=== PATIENT | female | born 1945 | race Caucasian/White ===

== ENCOUNTER 2022-11-24 08:52 | Observation (INO) | payer MEDICARE, OTHER ==
[2022-11-24] MEDS ORDERED: SODIUM CHLORIDE 0.9% 1,000 ML IV STA (09:14)
[2022-11-24] MEDS ORDERED: DILTIAZEM DRIP BOLUS FROM BAG 1 MG SOLN IV ONE (09:29)
[2022-11-24] MEDS ORDERED: HEPARIN SODIUM 1,000 UN/ML (10ML VL) IV PRN (09:29)
[2022-11-24] MEDS ORDERED: DILTIAZEM 125 MG in SODIUM CHLORIDE 0.9% 100 ML IV SCH (09:30)
[2022-11-24] MEDS ORDERED: HEPARIN SOD,PORK IN 0.45% NACL 25,000 UNIT in 0.45% NACL 1 250ML.BAG IV SCH (09:30)
--- NOTE | 2022-11-24 09:45 | ED ---
General Adult HPI - General Chief complaint: Syncope Stated complaint: palpatations Time Seen by Provider: 11/24/22 09:12 Source: patient, family, EMS, RN notes reviewed, old records reviewed Mode of arrival: EMS - History of Present Illness Initial comments: Patient is a 77-year-old female with past medical history remarkable for CAD, diabetes, hypertension was on aspirin and Plavix at home presents emergency Department with what appears to be A. fib with RVR. Patient states she will this morning was having palpitations. Was not feeling well because of this. She called her daughter and they called EMS. Patient had a near syncopal episode when they stood her up which resolved when she laid down. States that her vision went black but she was still able to hear and move parts of her body. She is not fall or injure herself lately. She is not fall today. She curre ntly denies any complaints other than the palpitations. Denies nausea or vomiting. Denies chest pain. Denies abdominal pain. Denies any headache or weakness. Denies dizziness to me. No other acute complaints at this time. No history of atrial fibrillation. - Related Data Home Medications Medication Instructions Recorded Confirmed Aspirin EC [Ecotrin Low Dose] 81 mg PO DAILY 11/24/22 11/24/22 Atorvastatin [Lipitor] 80 mg PO DAILY 11/24/22 11/24/22 Clopidogrel [Plavix] 75 mg PO HS 11/24/22 11/24/22 Metoprolol Succinate (ER) [Toprol 25 mg PO DAILY 11/24/22 11/24/22 Xl] lisinopriL 30 mg PO DAILY 11/24/22 11/24/22 metFORMIN HCL [Glucophage] 500 mg PO HS 11/24/22 11/24/22 Allergies Allergy/AdvReac Type Severity Reaction Status Date / Time No Known Allergies Allergy Verified 11/24/22 11:18 Review of Systems ROS Statement: Those systems with pertinent positive or pertinent negative responses have been documented in the HPI. Review of Systems: CONST: Denies fever EYES: Denies blurry vision ENT: Denies nasal congestion C/V: Endorses palpitations RESP: Denies shortness of breath GI: Denies abdominal pain : Denies dysuria SKIN: Denies rash. MSK: Denies joint pain. NEURO: Denies headache ROS Other: All systems not noted in ROS Statement are negative. Past Medical History Past Medical History: Coronary Artery Disease (CAD), Diabetes Mellitus, Hyperlipidemia, Hypertension, Musculoskeletal Disorder, Osteoarthritis (OA), Skin Disorder, Vascular Disorder Additional Past Medical History / Comment(s): Wound Rt Heel, Polio AGE 6, RECOVERED. History of Any Multi-Drug Resistant Organisms: None Reported Past Surgical History: Appendectomy, Heart Catheterization With Stent, Hysterectomy, Joint Replacement, Tonsillectomy, Tubal Ligation Additional Past Surgical History / Comment(s): Drug eluding stent in the proximal LAD and percutaneous transluminal coronary angioplasty of the first diagonal branch of the LAD done in November 2014, bilateral knee replacements one done in 1995 and one in 2000, revision left total knee October 2015, ABD AORTAGRAM 08/2015 and PTBA RT LEG. recent knee revison surg october 29 Past Anesthesia/Blood Transfusion Reactions: No Reported Reaction Date of Last Stent Placement:: 11/2014 Past Psychological History: No Psychological Hx Reported Smoking Status: Never smoker Past Alcohol Use History: None Reported Past Drug Use History: None Reported - Past Family History Brother(s) Additional Family Medical History / Comment(s): Patient has 3 brothers with no major medical problems. Patient has 1 stepbrother and 2 stepsisters. Patient has 1 daughter that from an aneurysm and one daughter and son with no major medical problems. Mother Family Medical History: Osteoarthritis (OA) Additional Family Medical History / Comment(s): Mother is alive at age 88 with history of osteoarthritis and hip replacement Father Family Medical History: Coronary Artery Disease (CAD), Mitral Valve Prolapse (MVP) Additional Family Medical History / Comment(s): age 34 of heart attack General Exam - General Exam Comments Initial Comments: General: Appears in no acute distress. HEAD: Normal with no signs of head trauma. EYES: PERRLA, EOMI, conjunctiva normal, no discharge. Pulses are 3 mm equal bilaterally. ENT: Hearing grossly intact, normal oropharynx. RESPIRATORY: Clear breath sounds bilaterally. No wheezes, rales, or rhonchi. C/V: Irregular rate and rhythm. S1 and S2 auscultated, no edema, peripheral pulses 2+ and intact throughout ABD: Abd is soft, nontender, nondistended EXT: Normal range of motion, no obvious deformity SKIN: No rashes or lesions observed on exposed skin. NEURO: Alert and oriented 4. No focal deficits. Course Vital Signs 11/24/22 11/24/22 11/24/22 08:59 10:15 10:42 Temperature 97.0 F L Pulse Rate 131 H 76 86 Respiratory 17 18 18 Rate Blood Pressure 138/66 136/86 O2 Sat by Pulse 99 99 Oximetry 11/24/22 11/24/22 12:55 14:30 Temperature Pulse Rate 70 72 Respiratory 17 18 Rate Blood Pressure 169/121 130/70 O2 Sat by Pulse 96 97 Oximetry Medical Decision Making - Medical Decision Making Was pt. sent in by a medical professional or institution (, PA, [employer], urgent care, hospital, or group home...) When possible be specific @ -No Did you speak to anyone other than the patient for history (EMS, parent, family, police, friend...)? What history was obtained from this source @ -Patient's family is at bedside who corroborated the story. Did you review nursing and triage notes (agree or disagree)? Why? @ -I reviewed and agree with nursing and triage notes Were old charts reviewed (outside hosp., previous admission, EMS record, old EKG, old radiological studies, urgent care reports/EKG's, group home records)? Report findings @ -Old charts reviewed from 2016 when patient has had EKG here. Differential Diagnosis (chest pain, altered mental status, abdominal pain women, abdominal pain men, vaginal bleeding, weakness, fever, dyspnea, syncope, headache, dizziness, GI bleed, back pain, seizure, CVA, palpatations, mental health, musculoskeletal)? @ - Differential Palpitations Ventricular arrhythmias, atrial arrhythmias, myocardial infarction, anemia, thyrotoxicosis, electrolyte imbalance, hypokalemia, pulmonary embolism, pulmon reginald disease, drugs, alcohol, anxiety, stress.... This is not meant to be an all-inclusive list. EKG interpreted by me (3pts min.). @ -As above X-rays interpreted by me (1pt min.). @ -Chest x-ray reveals no obvious acute cardio pulmonary process. CT interpreted by me (1pt min.). @ -CT brain revealed no obvious acute intracranial process. CT angiogram the chest revealed no obvious pulmonary embolism. U/S interpreted by me (1pt. min.). @ -None done What testing was considered but not performed or refused? (CT, X-rays, U/S, la bs)? Why? @ -None What meds were considered but not given or refused? Why? @ -None Did you discuss the management of the patient with other professionals (professionals i.e. , PA, [employer], lab, RT, psych nurse, social sciences professor, portable trackman, teacher, loan review officer, cyanide case hardener)? Give summary @ -Discussed with Dr. Delaney who accepted the admission. Was smoking cessation discussed for >3mins.? @ -No Was critical care preformed (if so, how long)? @ -yes, 37 min Were there social determinants of health that impacted care today? How? (Homelessness, low income, unemployed, alcoholism, drug addiction, transportation, low edu. Level, literacy, decrease access to med. care, fdc, rehab)? @ -No Was there de-escalation of care discussed even if they declined (Discuss DNR or withdrawal of care, Hospice)? DNR status @ -No What co-morbidities impacted this encounter? (DM, HTN, Smoking, COPD, CAD, Cancer, CVA, ARF, Chemo, Hep., AIDS, mental health diagnosis, sleep apnea, morbid obesity)? @ -None Was patient admitted / discharged? Hospital course, mention meds given and route, prescriptions, significant lab abnormalities, going to OR and other pertinent info. @ -Based on the patient's presentation and physical exam, I'm concerned for atrial fibrillation with RVR for the patient. Appeared to have an orthostatic hypotensive episode earlier as well. Vital signs other than the A. fib with RVR are within acceptable limits at this time. We will obtain cardiac workup. Patient was in agreement this plan. Exam is unremarkable other than the A. fib with RVR at this time as well. Patient will be administered with aspirin, and will be started on a Cardizem drip for heart rate control as well as a heparin drip for the new onset A. fib. Patient was in agreement this plan. EKG showed new onset atrial fibrillation with RVR.Chest x-ray revealed no obvious acute process. Patient had an elevated d-dimer and CT angiogram revealed no obvious pulmonary embolism. Labs otherwise reveal negative troponin. BNP within acceptable limits for her age. No other obvious findings on labs. Following the bolus of Cardizem, patient did convert to normal sinus rhythm. She is not requiring the drip at this time but will be hung at bedside. Patiently maintained on a heparin drip now that CT brain was unremarkable. CT brain was obtained because patient had a recent fall in the last few weeks and she is uncertain if she injured herself. After the patient. She will be admitted for cardiology evaluation. She was in agreement with this plan. I spoke the accepting physician, Dr. Delaney who accepted the patient. Undiagnosed new problem with uncertain prognosis? @ -No Drug Therapy requiring intensive monitoring for toxicity (Heparin, Nitro, Insulin, Cardizem)? @ -No Were any procedures done? @ -No Diagnosis/symptom? @ -Atrial fibrillation with RVR Acute, or Chronic, or Acute on Chronic? @ -Acute Uncomplicated (without systemic symptoms) or Complicated (systemic symptoms)? @ -Complicated Side effects of treatment? @ -No Exacerbation, Progression, or Severe Exacerbation? @ -No Poses a threat to life or bodily function? How? (Chest pain, [place], [place], pneumonia, PE, COPD, DKA, ARF, appy, cholecystitis, CVA, Diverticulitis, Homicidal, Suicidal, threat to staff... and all critical care pts) @ -Potentially yes Diagnosis/symptom? @ -Near-syncope Acute, or Chronic, or Acute on Chronic? @ -Acute Uncomplicated (without systemic symptoms) or Complicated (systemic symptoms)? @ -Complicated Side effects of treatment? @ -none Exacerbation, Progression, or Severe Exacerbation] @ -no Poses a threat to life or bodily function? @ -no - Lab Data Result diagrams: 11/24/22 09:34 11/24/22 09:34 Lab Results 11/24/22 11/24/22 11/24/22 Range/Units 09:34 09:34 09:34 WBC 9.9 (3.8-10.6) k/uL RBC 4.09 (3.80-5.40) m/uL Hgb 12.9 (11.4-16.0) gm/dL Hct 39.8 (34.0-46.0) % MCV 97.2 (80.0-100.0) fL MCH 31.4 (25.0-35.0) pg MCHC 32.3 (31.0-37.0) g/dL RDW 14.0 (11.5-15.5) % Plt Count 241 (150-450) k/uL MPV 8.2 Neutrophils % 82 % Lymphocytes % 11 % Monocytes % 4 % Eosinophils % 2 % Basophils % 0 % Neutrophils # 8.1 H (1.3-7.7) k/uL Lymphocytes # 1.1 (1.0-4.8) k/uL Monocytes # 0.4 (0-1.0) k/uL Eosinophils # 0.2 (0-0.7) k/uL Basophils # 0.0 (0-0.2) k/uL PT 10.5 (9.0-12.0) sec INR 1.0 (<1.2) APTT 22.1 (22.0-30.0) sec D-Dimer 1.33 H (<0.60) mg/L FEU Sodium 134 L (137-145) mmol/L Potassium 4.0 (3.5-5.1) mmol/L Chloride 105 (98-107) mmol/L Carbon Dioxide 21 L (22-30) mmol/L Anion Gap 8 mmol/L BUN 18 H (7-17) mg/dL Creatinine 0.60 (0.52-1.04) mg/dL Est GFR (CKD-EPI)AfAm >90 (>60 ml/min/1.73 sqM) Est GFR (CKD-EPI)NonAf 90 (>60 ml/min/1.73 sqM) Glucose 147 H (74-99) mg/dL Calcium 8.7 (8.4-10.2) mg/dL Magnesium 1.6 (1.6-2.3) mg/dL Total Bilirubin 0.9 (0.2-1.3) mg/dL AST 21 (14-36) U/L ALT 14 (4-34) U/L Alkaline Phosphatase 82 (38-126) U/L Troponin I (0.000-0.034) ng/mL NT-Pro-B Natriuret Pep 1200 pg/mL Total Protein 6.2 L (6.3-8.2) g/dL Albumin 3.5 (3.5-5.0) g/dL Urine Color Urine Appearance (Clear) Urine pH (5.0-8.0) Ur Specific Trinity (1.001-1.035) Urine Protein (Negative) Urine Glucose (UA) (Negative) Urine Ketones (Negative) Urine Blood (Negative) Urine Nitrite (Negative) Urine Bilirubin (Negative) Urine Urobilinogen (<2.0) mg/dL Ur Leukocyte Esterase (Negative) Urine RBC (0-5) /hpf Urine WBC (0-5) /hpf Ur Squamous Epith Cells (0-4) /hpf Urine Bacteria (None) /hpf Hyaline Casts (0-2) /lpf Urine Mucus (None) /hpf 11/24/22 11/24/22 Range/Units 09:34 09:34 WBC (3.8-10.6) k/uL RBC (3.80-5.40) m/uL Hgb (11.4-16.0) gm/dL Hct (34.0-46.0) % MCV (80.0-100.0) fL MCH (25.0-35.0) pg MCHC (31.0-37.0) g/dL RDW (11.5-15.5) % Plt Count (150-450) k/uL MPV Neutrophils % % Lymphocytes % % Monocytes % % Eosinophils % % Basophils % % Neutrophils # (1.3-7.7) k/uL Lymphocytes # (1.0-4.8) k/uL Monocytes # (0-1.0) k/uL Eosinophils # (0-0.7) k/uL Basophils # (0-0.2) k/uL PT (9.0-12.0) sec INR (<1.2) APTT (22.0-30.0) sec D-Dimer (<0.60) mg/L FEU Sodium (137-145) mmol/L Potassium (3.5-5.1) mmol/L Chloride (98-107) mmol/L Carbon Dioxide (22-30) mmol/L Anion Gap mmol/L BUN (7-17) mg/dL Creatinine (0.52-1.04) mg/dL Est GFR (CKD-EPI)AfAm (>60 ml/min/1.73 sqM) Est GFR (CKD-EPI)NonAf (>60 ml/min/1.73 sqM) Glucose (74-99) mg/dL Calcium (8.4-10.2) mg/dL Magnesium (1.6-2.3) mg/dL Total Bilirubin (0.2-1.3) mg/dL AST (14-36) U/L ALT (4-34) U/L Alkaline Phosphatase (38-126) U/L Troponin I <0.012 (0.000-0.034) ng/mL NT-Pro-B Natriuret Pep pg/mL Total Protein (6.3-8.2) g/dL Albumin (3.5-5.0) g/dL Urine Color Light Yellow Urine Appearance Slightly Cloudy H (Clear) Urine pH 7.5 (5.0-8.0) Ur Specific Trinity 1.010 (1.001-1.035) Urine Protein Negative (Negative) Urine Glucose (UA) Negative (Negative) Urine Ketones Negative (Negative) Urine Blood Trace (Negative) Urine Nitrite Negative (Negative) Urine Bilirubin Negative (Negative) Urine Urobilinogen <2.0 (<2.0) mg/dL Ur Leukocyte Esterase Moderate (Negative) Urine RBC <1 (0-5) /hpf Urine WBC 27 H (0-5) /hpf Ur Squamous Epith Cells 1 (0-4) /hpf Urine Bacteria Occasional H (None) /hpf Hyaline Casts 1 (0-2) /lpf Urine Mucus Rare H (None) /hpf - EKG Data -: EKG Interpreted by Me EKG Comments: 12-lead Electrocardiogram Interpretation Note EKG was reviewed and interpreted by myself. 12-lead ECG performed at 0855 is interpreted by me as revealing atrial fibrillation with RVR at a rate of default value beats per minute. [place] is normal. QRS duration is 82 ms, QTc is 348 ms.. There were no ST or T wave abnormalities to suggest myocardial ischemia or injury. R wave progression across the precordium was satisfactory. By my interpretation this EKG is non-diagnostic for acute ischemia.When compared with EKG from October 2015, patient is in new onset A. fib. No other significant changes. 12-lead Electrocardiogram Interpretation Note EKG was reviewed and interpreted by myself. 12-lead ECG performed at 1122 is interpreted by me as revealing normal sinus rhythm at a rate of 68 beats per minute. [place] is normal. [place] interval is 212 ms, QRS duration is 85 ms, QTc is 463 ms.. There were no ST or T wave abnormalities to suggest myocardial ischemia or injury. R wave progression across the precordium was satisfactory. By my interpretation this EKG is non-diagnostic for acute ischemia. Critical Care Time Critical Care Time: Yes Total Critical Care Time: 37 Disposition Clinical Impression: Atrial fibrillation with RVR, Syncope, near Disposition: ADMITTED IP TO THIS HOSP Condition: Stable Referrals: Fran Vela DO [Primary Care Provider] - 1-2 days Time of Disposition: 12:38
[2022-11-24] MEDS ORDERED: ASPIRIN 81 MG PO STA (09:56)
[2022-11-24 10:05] LABS: Basophils % (A) 0 %; Eosinophils # (A) 0.2 k/uL (0-0.7); Eosinophils % (A) 2 %; HCT 39.8 % (34.0-46.0); HGB 12.9 gm/dL (11.4-16.0); Lymphocytes # (A) 1.1 k/uL (1.0-4.8); Lymphocytes % (A) 11 %; MCH 31.4 pg (25.0-35.0); MCHC 32.3 g/dL (31.0-37.0); MCV 97.2 fL (80.0-100.0); Mean Platelet Volume 8.2; Monocytes # (A) 0.4 k/uL (0-1.0); Monocytes % (A) 4 %; Neutrophils # (A) 8.1 k/uL (1.3-7.7); Neutrophils % (A) 82 %; Platelet Count 241 k/uL (150-450); RBC 4.09 m/uL (3.80-5.40); WBC 9.9 k/uL (3.8-10.6)
[2022-11-24 10:29] LABS: ALT 14 U/L (4-34); AST 21 U/L (14-36); African American GFR (CKD) >90 (>60 ml/min/1.73 sqM); Albumin 3.5 g/dL (3.5-5.0); Alkaline Phosphatase 82 U/L (38-126); Anion Gap 8 mmol/L; Blood Urea Nitrogen 18 mg/dL (7-17); Calcium 8.7 mg/dL (8.4-10.2); Carbon Dioxide 21 mmol/L (22-30); Chloride 105 mmol/L (98-107); Glucose 147 mg/dL (74-99); Magnesium 1.6 mg/dL (1.6-2.3); Non-African American GFR(CKD) 90 (>60 ml/min/1.73 sqM); Sodium 134 mmol/L (137-145); Total Bilirubin 0.9 mg/dL (0.2-1.3); Total Protein 6.2 g/dL (6.3-8.2)
[2022-11-24 10:38] LABS: NT-Pro-B-Type Natriuretic Pept 1200 pg/mL
--- NOTE | 2022-11-24 10:40 | XR ---
EXAMINATION TYPE: XR chest 2V DATE OF EXAM: 11/24/2022 COMPARISON: 11/12/2015 HISTORY: 77-year-old female with chest pain TECHNIQUE: AP and lateral views FINDINGS: Heart borderline in size. Aorta and pulmonary vasculature within normal limits. No consolidation or p leural effusion. IMPRESSION: Borderline heart size. No acute process seen.
[2022-11-24 11:05] LABS: Partial Thromboplastin Time 22.1 sec (22.0-30.0); Prothrombin Time 10.5 sec (9.0-12.0)
[2022-11-24] MEDS: HEPARIN SODIUM 1,000 UN/ML (10ML VL) IV ONE ×2 (11:38→12:49)
[2022-11-24] MEDS: DILTIAZEM 125 MG in SODIUM CHLORIDE 0.9% 100 ML IV SCH (12:04)
--- NOTE | 2022-11-24 12:35 | CT ---
EXAMINATION TYPE: CT brain wo con DATE OF EXAM: 11/24/2022 COMPARISON: None HISTORY: 77-year-old female head trauma, syncope Syncope. TECHNIQUE: Examination was done in axial plane without intravenous contrast. Coronal and sagittal r econstructions performed. CT DLP: 1150.6 mGycm Automated exposure control for dose reduction was used. FINDINGS: There is no evidence of acute intracranial hemorrhage, acute ischemic changes, mass, mass-effect, or extra-axial fluid collection. There is no effacement of cerebral sulci or basal subarachnoid cister ns. There is no hydrocephalus. There is no midline shift. Vivas-white matter distinction is preserv ed. Atherosclerotic calcifications within the carotid siphons. Moderate patchy white matter hypodensities in both cerebral hemispheres Leftward nasal septal deviation. Trace mucosal thickening ethmoid air cells. Small amount of fluid sc attered within the right mastoid air cells. Orbits and globes appear intact. IMPRESSION: No acute intracranial abnormality seen. Moderate patchy burden of chronic small vessel ischemic disea se.
--- NOTE | 2022-11-24 12:38 | CT ---
EXAMINATION TYPE: CT chest angio for PE CT DLP: 588 mGycm, Automated exposure control for dose reduction was used. DATE OF EXAM: 11/24/2022 12:04 PM COMPARISON: None CLINICAL INDICATION:Female, 77 years old with history of elevated dimer, new onset a fib, eval for PE; Elevated d-dimer and chest pain. TECHNIQUE/CONTRAST: CTA scan of the thorax is performed with IV Contrast, patient injected with 82ml mL of Isovue 370, PA P images are created and reviewed these are created on a separate workstation.. FINDINGS: Pulmonary Artery: There is no evidence for a filling defect within the pulmonary vasculature to sugge st acute pulmonary embolism. The pulmonary artery is of normal size. Lungs/Pleura: No evidence of focal consolidation, pleural effusion or pneumothorax. Airway: Large airways are patent. Heart: The heart is enlarged for size. Mitral valve annular cusp patient's. Coronary artery cusp heather ent's. Aortic valve leaflet calcifications. Vasculature: No evidence of aortic aneurysm. Mediastinum: No gross evidence of adenopathy. Small hiatal hernia. Musculoskeletal: No acute osseous abnormalities, severe degeneration changes associated with bone-on- bone articulation. There is large joint effusion right greater than left. Soft Tissues: Unremarkable. Lower neck: No significant findings. Upper Abdomen: Gallstone in the gallbladder lumen. IMPRESSION: 1. No evidence of pulmonary embolism. 2. Cardiomegaly with coronary artery calcifications, aortic valve calcifications and mitral valve mendez ular calcification. 3. Small hiatal hernia. 4. Cholelithiasis. 5. Severe degeneration of the shoulders with bilateral joint effusions, right greater than left..
[2022-11-24] MEDS ORDERED: NALOXONE 0.4 MG/ML 1 ML VIAL IV PRN (12:43)
[2022-11-24] MEDS ORDERED: ACETAMINOPHEN TAB 325 MG TAB PO PRN (12:43)
[2022-11-24] MEDS ORDERED: ONDANSETRON 4 MG/2 ML VIAL IVP PRN (12:43)
[2022-11-24 13:00] LABS: Bacteria,Urine Occasional /hpf; Hyaline Casts,Urine 1 /lpf (0-2); Mucus,Urine Rare /hpf; RBC,Urine <1 /hpf (0-5); Squamous Epithelial Cell,Urine 1 /hpf (0-4); WBC,Urine 27 /hpf (0-5)
[2022-11-24 13:11] LABS: Appearance,Urine Slightly Cloudy (Clear); Color,Urine Light Yellow; Glucose,Urine (UA) Negative (Negative); PH, Urine 7.5 (5.0-8.0); Protein,Urine Negative (Negative)
[2022-11-24 13:12] LABS: Bilirubin,Urine Negative (Negative); Blood,Urine Trace (Negative); Ketones,Urine Negative (Negative); Leukocyte Esterase,Urine Moderate (Negative); Nitrite,Urine Negative (Negative); Urobilinogen,Urine <2.0 mg/dL (<2.0)
--- NOTE | 2022-11-24 17:09 | HP ---
HISTORY AND PHYSICAL CHIEF COMPLAINT: Palpitation. HISTORY OF PRESENT ILLNESS: This is a 77-year-old woman with a past medical history of multiple medical problems, who was having palpitations. The patient was noted to have atrial fibrillation with fast ventricular rate. The patient also had evidence of presyncope with EMS, and the patient was found to have atrial fibrillation with fast ventricular rate. The patient was given Cardizem and heparin. The patient converted to normal sinus rhythm. The patient also had elevated D-dimer. CT angio was negative. There is no history of any fever, rigor, or chills. PAST MEDICAL HISTORY: Reviewed include diabetes mellitus, type 2 and DJD. Rest of the history and rest of the chart are also reviewed. HOME MEDICATIONS: Reviewed include Glucophage. Rest of the medications and rest of the chart are also reviewed. ALLERGIES: None known. FAMILY HISTORY: History of DJD. SOCIAL HISTORY: No history of smoking or alcohol. REVIEW OF SYSTEMS: Fourteen-point review is negative except as mentioned earlier. PHYSICAL EXAMINATION: VITAL SIGNS: Pulse is 72, blood pressure is 130/70, respirations 18. HEENT: Conjunctivae are normal. NECK: No jugular venous distention. CARDIOVASCULAR: S1 and S2 muffled. RESPIRATORY: Breath sounds diminished at the bases. ABDOMEN: Soft and nontender. LEGS: No edema. NERVOUS SYSTEM: No focal deficits. SKIN: No ulcers or rashes. JOINTS: No active deforming arthropathy. LABORATORY DATA: Reviewed. ASSESSMENT: 1. Atrial fibrillation with fast ventricular rate, paroxysmal. 2. Elevated D-dimer without any evidence of pulmonary embolism. 3. Rule out urinary tract infection. 4. Diabetes mellitus, type 2. 5. Hypertension. 6. Hyperlipidemia. 7. Multiple medical issues. RECOMMENDATIONS AND DISCUSSION: Recommend to continue current medications. Continue symptomatic treatment. Otherwise, we will obtain a Cardiology consultation. Empiric antibiotics, cultures. Prognosis is guarded because of multiple complex medical issues. Further recommendations to follow. MMODL / IJN: [id number] /
--- NOTE | 2022-11-24 17:39 | CA ---
Transthoracic Echo Report Name: Ana Hernandez Age: 77 Gender: F : 1945 Exam Date: 11/24/2022 13:38 Exam Location: [facility] Ht (in): 64 Wt (lb): 175 Ordering Physician: Puma Maloney MD Attending/Referring Phys: [employer]ing Pusher Evelio Anton Procedure CPT: Indications: New onset afib Cardiac Hx: Technical Quality: Fair Contrast 1: Total Dose (mL): Contrast 2: Total Dose (mL): MEASUREMENTS (Male / Female) Normal Values 2D ECHO LV Diastolic Diameter PLAX 4.4 cm 4.2 - 5.9 / 3.9 - 5.3 cm LV Systolic Diameter PLAX 2.0 cm IVS Diastolic Thickness 1.1 cm 0.6 - 1.0 / 0.6 - 0.9 cm LVPW Diastolic Thickness 1.2 cm 0.6 - 1.0 / 0.6 - 0.9 cm LV Relative Wall Thickness 0.5 RV Internal Dim ED PLAX 3.1 cm LVOT Diameter 2.0 cm Aortic Root Diameter 2.7 cm LA Systolic Diameter LX 4.3 cm 3.0 - 4.0 / 2.7 - 3.8 cm LV Diastolic Volume MOD BP 56.0 cm??? 67 - 155 / 56 - 104 cm??? LV Systolic Volume MOD BP 25.0 cm??? - 58 / 19 - 49 cm??? LV Ejection Fraction MOD BP 55.4 % >= 55 % LV Cardiac Index MOD BP 1018.7 cm???/min???m??? LV Diastolic Volume MOD 4C 64.1 cm??? LV Systolic Volume MOD 4C 37.1 cm??? LV Ejection Fraction MOD 4C 42.1 % LV Cardiac Index MOD 4C 886.0 cm???/min???m??? LV Diastolic Length 4C 6.4 cm LV Systolic Length 4C 5.8 cm LV Diastolic Volume MOD 2C 45.0 cm??? LV Systolic Volume MOD 2C 15.0 cm??? LV Ejection Fraction MOD 2C 66.7 % LV Cardiac Index MOD 2C 986.9 cm???/min???m??? LV Diastolic Length 2C 5.8 cm LV Systolic Length 2C 5.1 cm LA Volume 128.3 cm??? 18 - 58 / 22 - 52 cm??? Ascending Aorta Diameter 3.1 cm DOPPLER AV Peak Velocity 378.1 cm/s AV Peak Gradient 57.2 mmHg AV Mean Velocity 285.6 cm/s AV Mean Gradient 36.5 mmHg AV Velocity Time Integral 101.3 cm LVOT Peak Velocity 97.3 cm/s LVOT Peak Gradient 3.8 mmHg LVOT Velocity Time Integral 24.1 cm LVOT Stroke Volume 75.8 cm??? LVOT Stroke Volume Index 41.0 ml/m??? LVOT Cardiac Index 2489.0 cm???/min???m??? AV Area Cont Eq vti 0.7 cm??? AV Area Cont Eq pk 0.8 cm??? MV Peak Velocity 183.8 cm/s MV Peak Gradient 13.5 mmHg MV Mean Velocity 91.1 cm/s MV Mean Gradient 4.2 mmHg MV Velocity Time Integral 61.3 cm MR Peak Velocity 600.7 cm/s MR Peak Gradient 144.3 mmHg Mitral E Point Velocity 132.2 cm/s Mitral A Point Velocity 117.7 cm/s Mitral E to A Ratio 1.1 MV Deceleration Time 397.6 ms TR Peak Velocity 266.2 cm/s TR Peak Gradient 28.3 mmHg Right Ventricular Systolic Press 33.5 mmHg PV Peak Velocity 92.9 cm/s PV Peak Gradient 3.5 mmHg FINDINGS Left Ventricle Normal LV size. Mild concentric hypertrophy. Moderate basal septal hypertrophy.left ventricular ejection fraction is estimated at 55-60 %.normal left ventricular wall motion. Right Ventricle Normal right ventricular size. RVSP= 32mmhg. Right Atrium Normal right atrial size. Left Atrium Severe left atrial dilatation. LA Volume index= 69ml/m2 Mitral Valve Moderate MR. Estimated MV Area by VTI= [id number] mitral annular calcification. Aortic Valve Moderate AV calcification. Estimated AV Area by VTI= 0.8cm2 moderate to severe aortic stenosis with [id number] aortic regurgitation Tricuspid Valve Tricuspid valve not well visualized. Mild TR. Pulmonic Valve Pulmonic valve not well visualized. Mild PI. Pericardium Normal pericardium. Aorta Normal size aortic root and proximal ascending aorta. CONCLUSIONS 1. Normal left ventricular size and systolic function 2. Moderate to severe aortic stenosis with [id number] aortic regurgitation 3. Moderate mitral regurgitation with severe mitral annulus calcification 4. Mild tricuspid regurgitation with no evidence of pulmonary hypertension. Previewed by: Dr. Deepika Falcon MD (Electronically Signed) Final Date: 24 November 2022 17:38
[2022-11-24] MEDS ORDERED: CLOPIDOGREL 75 MG TAB PO SCH (21:00)
[2022-11-24] MEDS ORDERED: metFORMIN 500 MG TAB PO SCH (21:00)
[2022-11-24 22:28] LABS: Glucose,Whole Blood 195 mg/dL (70-110)
[2022-11-25 06:04] LABS: Glucose,Whole Blood 143 mg/dL (70-110)
[2022-11-25 06:46] LABS: INR 1.1 (<1.2); Prothrombin Time 11.1 sec (9.0-12.0)
[2022-11-25 06:47] LABS: Basophils % (A) 0 %; Eosinophils # (A) 0.2 k/uL (0-0.7); Eosinophils % (A) 2 %; HCT 39.7 % (34.0-46.0); HGB 13.1 gm/dL (11.4-16.0); Lymphocytes # (A) 1.9 k/uL (1.0-4.8); Lymphocytes % (A) 18 %; MCH 32.2 pg (25.0-35.0); MCHC 32.9 g/dL (31.0-37.0); MCV 97.8 fL (80.0-100.0); Mean Platelet Volume 7.9; Monocytes # (A) 0.5 k/uL (0-1.0); Monocytes % (A) 5 %; Neutrophils # (A) 7.8 k/uL (1.3-7.7); Neutrophils % (A) 74 %; Platelet Count 215 k/uL (150-450); RBC 4.05 m/uL (3.80-5.40); RDW 13.8 % (11.5-15.5); WBC 10.6 k/uL (3.8-10.6)
[2022-11-25 06:48] LABS: Basophils % (A) 0 %; Eosinophils # (A) 0.1 k/uL (0-0.7); Eosinophils % (A) 1 %; HCT 38.5 % (34.0-46.0); HGB 12.5 gm/dL (11.4-16.0); Lymphocytes # (A) 1.9 k/uL (1.0-4.8); Lymphocytes % (A) 18 %; MCH 31.8 pg (25.0-35.0); MCHC 32.4 g/dL (31.0-37.0); Mean Platelet Volume 7.8; Monocytes # (A) 0.5 k/uL (0-1.0); Monocytes % (A) 5 %; Neutrophils # (A) 7.6 k/uL (1.3-7.7); Neutrophils % (A) 74 %; Platelet Count 216 k/uL (150-450); RBC 3.93 m/uL (3.80-5.40); RDW 13.9 % (11.5-15.5); WBC 10.2 k/uL (3.8-10.6)
[2022-11-25 07:21] LABS: African American GFR (CKD) >90 (>60 ml/min/1.73 sqM); Anion Gap 9 mmol/L; Blood Urea Nitrogen 19 mg/dL (7-17); Calcium 9.5 mg/dL (8.4-10.2); Carbon Dioxide 24 mmol/L (22-30); Chloride 107 mmol/L (98-107); Glucose 135 mg/dL (74-99); Non-African American GFR(CKD) 81 (>60 ml/min/1.73 sqM); Potassium 4.2 mmol/L (3.5-5.1); Sodium 140 mmol/L (137-145)
[2022-11-25] MEDS: DILTIAZEM 125 MG in SODIUM CHLORIDE 0.9% 100 ML IV SCH (08:56)
[2022-11-25] MEDS ORDERED: lisinopriL 10 MG TAB PO SCH (09:00)
[2022-11-25] MEDS ORDERED: ATORVASTATIN 80 MG TAB PO SCH (09:00)
[2022-11-25] MEDS ORDERED: ASPIRIN 81 MG PO SCH (09:00)
[2022-11-25] MEDS ORDERED: APIXABAN 5 MG TAB PO SCH (09:30)
[2022-11-25] MEDS ORDERED: METOPROLOL TARTRATE 25 MG TAB PO SCH (09:30)
[2022-11-25 10:00] VITALS: RESP 18
--- NOTE | 2022-11-25 11:00 | P.CRDCN ---
History of Present Illness History of present illness: HISTORY OF PRESENT ILLNESS: This is a 77-year-old female with a past medical history significant for peripheral arterial disease, coronary artery disease with previous stenting of the LAD, hypertension, hyperlipidemia, and valvular heart disease. Patient follows in the office with Dr. Thomas. We have been asked to see the patient in consultation for new onset atrial fibrillation. Patient examined at the bedside. Patient presented to the hospital for chief complaint of palpitations. Patient was found to be in A. fib with RVR. The patient was started on IV heparin and IV Cardizem. She subsequently converted to sinus mechanism. She is maintaining sinus mechanism this morning. She denies chest pain or pressure. She denies shortness of breath. Vital signs are stable. * EKG reveals atrial fibrillation with RVR * Chest xray borderline heart size. No acute process seen. * chest CT: No evidence for pulmonary embolism. Cardiomegaly with coronary artery calcifications, aortic valve calcifications and mitral valve annular calcification. * Laboratory data: WBC 10.2. Hemoglobin 12.5. Platelet count 216. Sodium 140. Potassium 4.2. BUN 19. Creatinine 0.73. troponin 0.012. 1.510. 1.800. * Current home cardiac medications include aspirin 81 mg daily, metoprolol succinate 25 mg daily, lisinopril 30 mg daily, atorvastatin 80 mg daily, and Plavix 75 mg at night * echocardiogram completed revealing ejection fraction 55-60%, severe left atrial dilation, moderate mitral regurgitation, moderate to severe aortic stenosis, [id number] aortic regurgitation, and mild tricuspid regurgitation. * Cardiac catheterization history: October 2015 revealing mild in-stent restenosis of the proximal LAD stenting. Critical disease of the ostial first diagonal. medical management was recommended. REVIEW OF SYSTEMS: At the time of my exam: CONSTITUTIONAL: Denies fever or chills. HEENT: Denies blurred vision, vision changes, or eye pain. Denies hemoptysis CARDIOVASCULAR: Denies chest pain. Denies orthopnea. Denies PND. Denies palpitations RESPIRATORY: Denies shortness of breath. GASTROINTESTINAL: Denies abdominal pain. Denies nausea or vomiting. HEMATOLOGIC: Denies bleeding disorders. GENITOURINARY: Denies any blood in urine. SKIN: Denies pruitis. Denies rash. PHYSICAL EXAM: VITAL SIGNS: Reviewed. GENERAL: Well-developed in no acute distress. HEENT: Head is normocephalic. Pupils are equal, round. Sclerae anicteric. Mucous membranes of the mouth are moist. Neck supple. No JVD or thyromegaly LUNGS: Respirations even and unlabored. Lungs essentially clear to auscultation bilaterally. HEART: Regular rate and rhythm. S1 and S2 heard. systolic murmur noted ABDOMEN: Soft. Nondistended. Nontender. EXTREMITIES: Normal range of motion. No clubbing or cyanosis. Peripheral pulses intact. No lower extremity edema NEUROLOGIC: Awake and alert. Oriented x 3. ASSESSMENT: Palpitations New-onset atrial fibrillation with RVR Coronary artery disease with previous stenting of the LAD Peripheral arterial disease Hypertension Hyperlipidemia Valvular heart disease including moderate to severe aortic stenosis Diabetes PLAN: 2-D echo obtained and reviewed Check TSH Discontinue aspirin. Continue Plavix Begin Eliquis 5mg BID Change beta yung to metoprolol tartrate 25 mg twice a day Patient may be discharged home today from a cardiac standpoint Nurse practitioner note has been reviewed by physician. Signing provider agrees with the documented findings, assessment, and plan of care. Past Medical History Past Medical History: Coronary Artery Disease (CAD), Diabetes Mellitus, Hyp erlipidemia, Hypertension, Musculoskeletal Disorder, Osteoarthritis (OA), Skin Disorder, Vascular Disorder Additional Past Medical History / Comment(s): Wound Rt Heel, Polio AGE 6, RECOVERED. History of Any Multi-Drug Resistant Organisms: None Reported Past Surgical History: Appendectomy, Heart Catheterization With Stent, H ysterectomy, Joint Replacement, Tonsillectomy, Tubal Ligation Additional Past Surgical History / Comment(s): Drug eluding stent in the proximal LAD and percutaneous transluminal coronary angioplasty of the first diagonal branch of the LAD done in November 2014, bilateral knee replacements one done in 1995 and one in 2000, revision left total knee October 2015, ABD AORTAGRAM 08/2015 and PTBA RT LEG. recent knee revison surg october 29 Past Anesthesia/Blood Transfusion Reactions: No Reported Reaction Date of Last Stent Placement:: 11/2014 Past Psychological History: No Psychological Hx Reported Smoking Status: Never smoker Past Alcohol Use History: None Reported Additional Past Alcohol Use History / Comment(s): Patient is a lifelong nonsmoker. She denies any medical marijuana, marijuana or street drug or alcohol use. Past Drug Use History: None Reported - Past Family History Brother(s) Additional Family Medical History / Comment(s): Patient has 3 brothers with no major medical problems. Patient has 1 stepbrother and 2 stepsisters. Patient has 1 daughter that from an aneurysm and one daughter and son with no major medical problems. Mother Family Medical History: Osteoarthritis (OA) Additional Family Medical History / Comment(s): Mother is alive at age 88 with history of osteoarthritis and hip replacement Father Family Medical History: Coronary Artery Disease (CAD), Mitral Valve Prolapse (MVP) Additional Family Medical History / Comment(s): age 34 of heart attack Medications and Allergies Home Medications Medication Instructions Recorded Confirmed Type Aspirin EC [Ecotrin Low Dose] 81 mg PO DAILY 11/24/22 11/24/22 History Atorvastatin [Lipitor] 80 mg PO DAILY 11/24/22 11/24/22 History Clopidogrel [Plavix] 75 mg PO HS 11/24/22 11/24/22 History Metoprolol Succinate (ER) [Toprol 25 mg PO DAILY 11/24/22 11/24/22 History Xl] lisinopriL 30 mg PO DAILY 11/24/22 11/24/22 History metFORMIN HCL [Glucophage] 500 mg PO HS 11/24/22 11/24/22 History Allergies Allergy/AdvReac Type Severity Reaction Status Date / Time No Known Allergies Allergy Verified 11/24/22 11:18 Physical Exam Vitals: Vital Signs Temp Pulse Pulse Resp BP BP Pulse Ox 11/25/22 07:40 98 11/25/22 04:21 62 16 174/77 97 11/25/22 00:00 74 16 177/73 98 11/24/22 22:30 74 11/24/22 22:27 97.9 F 71 16 176/76 98 11/24/22 21:41 68 17 160/78 98 11/24/22 18:52 70 17 137/99 95 11/24/22 16:36 61 17 160/103 96 11/24/22 14:30 72 18 130/70 97 11/24/22 12:55 70 17 169/121 96 11/24/22 10:42 86 18 136/86 11/24/22 10:15 76 18 99 11/24/22 08:59 97.0 F L 131 H 17 138/66 99 Intake and Output 11/24/22 11/25/22 11/25/22 22:59 06:59 14:59 Output Total 125 Balance -125 Output: Urine 125 Other: Voiding Method Toilet Toilet # Voids 1 Weight 79.379 kg Results 11/25/22 05:54 11/25/22 05:54 Cardiac Enzymes 11/24/22 11/24/22 11/24/22 Range/Units 09:34 09:34 14:57 AST 21 (14-36) U/L Troponin I <0.012 1.510 H* (0.000-0.034) ng/mL 11/24/22 Range/Units 17:26 AST (14-36) U/L Troponin I 1.800 H* (0.000-0.034) ng/mL Coagulation 11/24/22 11/24/22 11/24/22 Range/Units 09:34 14:57 18:58 PT 10.5 (9.0-12.0) sec APTT 22.1 113.5 H* 68.8 H (22.0-30.0) sec 11/25/22 Range/Units 05:54 PT 11.1 (9.0-12.0) sec APTT (22.0-30.0) sec CBC 11/24/22 11/25/22 11/25/22 Range/Units 09:34 05:54 05:54 WBC 9.9 10.6 10.2 (3.8-10.6) k/uL RBC 4.09 4.05 3.93 (3.80-5.40) m/uL Hgb 12.9 13.1 12.5 (11.4-16.0) gm/dL Hct 39.8 39.7 38.5 (34.0-46.0) % Plt Count 241 215 216 (150-450) k/uL Comprehensive Metabolic Panel 11/24/22 11/25/22 Range/Units 09:34 05:54 Sodium 134 L 140 (137-145) mmol/L Potassium 4.0 4.2 (3.5-5.1) mmol/L Chloride 105 107 (98-107) mmol/L Carbon Dioxide 21 L 24 (22-30) mmol/L BUN 18 H 19 H (7-17) mg/dL Creatinine 0.60 0.73 (0.52-1.04) mg/dL Glucose 147 H 135 H (74-99) mg/dL Calcium 8.7 9.5 (8.4-10.2) mg/dL AST 21 (14-36) U/L ALT 14 (4-34) U/L Alkaline Phosphatase 82 (38-126) U/L Total Protein 6.2 L (6.3-8.2) g/dL Albumin 3.5 (3.5-5.0) g/dL Current Medications Generic Name Dose Route Start Last Admin Trade Name Freq PRN Reason Stop Dose Admin Acetaminophen 650 mg 11/24/22 12:43 Acetaminophen Tab 325 Mg Tab PO Q6HR PRN Mild Pain or Fever > 100.5 Aspirin 81 mg 11/25/22 09:00 Aspirin 81 Mg PO DAILY [facility] Atorvastatin Calcium 80 mg 11/25/22 09:00 Atorvastatin 80 Mg Tab PO DAILY [facility] Clopidogrel Bisulfate 75 mg 11/24/22 21:00 11/24/22 22:31 Clopidogrel 75 Mg Tab PO 75 mg HS MARE Administration Heparin Sodium (Porcine) 0 unit 11/24/22 09:29 Heparin Sodium 1,000 Un/Ml (10ml Vl) IV PER PROTOCOL PRN Low PTT Protocol Heparin Sodium/Sodium Chloride 250 mls @ 9.525 mls/hr 11/24/22 09:30 11/24/22 12:50 25,000 unit/ Sodium Chloride IV 12 units/kg/hr .Q24H MARE 9.525 mls/hr Administration Protocol 12 UNITS/KG/HR Diltiazem HCl 125 mg/ Sodium 125 mls @ 5 mls/hr 11/24/22 10:15 11/24/22 12:04 Chloride IV Not Given .Q24H MARE 5 MG/HR Ceftriaxone Sodium 1 gm/ 50 mls @ 100 mls/hr 11/24/22 15:45 11/24/22 16:56 Sodium Chloride IVPB 100 mls/hr Q24HR MARE Administration Protocol Lisinopril 30 mg 11/25/22 09:00 Lisinopril 10 Mg Tab PO DAILY MARE Metformin HCl 500 mg 11/24/22 21:00 11/24/22 22:31 Metformin 500 Mg Tab PO 500 mg HS MARE Administration Naloxone HCl 0.2 mg 11/24/22 12:43 Naloxone 0.4 Mg/Ml 1 Ml Vial IV Q2M PRN Opioid Reversal Ondansetron HCl 4 mg 11/24/22 12:43 Ondansetron 4 Mg/2 Ml Vial IVP Q8HR PRN Nausea And Vomiting Intake and Output 11/24/22 11/25/22 11/25/22 22:59 06:59 14:59 Output Total 125 Balance -125 Output: Urine 125 Other: Voiding Method Toilet Toilet # Voids 1 Weight 79.379 kg 11/25/22 05:54 11/25/22 05:54
[2022-11-25 11:35] LABS: Glucose,Whole Blood 138 mg/dL (70-110)
[2022-11-25 15:39] VITALS: BP 135/62; PULSE 76; TEMP 98
--- NOTE | 2022-11-25 21:46 | P.DS ---
Providers Date of admission: 11/24/22 12:46 Expected date of discharge: 11/25/22 Attending physician: Slick Delaney Consults: 11/24/22 12:43 Consult Physician Routine Consulting Provider: [facility] Consult Reason/Comments: new onset afib with rvr Do you want consulting provider notified?: Yes Primary care physician: Fran Vela [facility] Course: Final diagnosis Atrial fibrillation with fast ventricular rate, paroxysmal Epistaxis, improved Elevated d-dimer without any evidence of pulmonary embolism Possible acute urinary tract infection, present on admission Diabetes mellitus, type II Hypertension history Hyperlipidemia Obesity with a BMI of 30 GI prophylaxis DVT prophylaxis Full code Discharge disposition Patient is being discharged in a stable condition with guarded prognosis to home. Patient will follow-up with Dr. Vela in the outpatient setting upon discharge. Patient is to continue to hold Plavix and eliquis and close outpatient follow-up on Monday with primary care provider as well as cardiology as scheduled. Total time taken is greater than 35 minutes. Hospital course This is a 77-year-old female who was recently admitted with palpitations and found to be in atrial fibrillation with RVR. Patient was continued on heparin along with Cardizem and evaluated and monitored closely by cardiology. Patient has been transitioned to oral eliquis been instructed to continue with Plavix. Aspirin discontinued. Patient has been cleared by consultations for discharge today. Upon discharge patient developed a bloody nose of which patient reports she gets them very frequently. Given patient recently started new anticoagulant and was continued on Plavix and aspirin would recommend holding these until follow-up this week. Patient instructed to follow-up with primary care provider and cardiology Monday. Patient was able to control the bleeding and extremely anxious about wanting to go home. Patient also educated that if bleeding was uncontrolled to report to the nearest emergency department or call 911. Currently no reports of chest pain, shortness of breath, or palpitations. Patient is afebrile. No reports of nausea or vomiting and patient is tolerating diet. Patient will be discharged home today. Guarded prognosis. Physical exam: Gen: This is a 77-year-old female who is awake, alert and oriented 3, well- developed, well-nourished, obese. HEENT: Head is atraumatic, normocephalic. Pupils equal, round. Sclerae is anicteric. NECK: Supple. No JVD. No lymphadenopathy. No thyromegaly. LUNGS: Clear to auscultation. No wheezes or rhonchi. No intercostal retractions. HEART: S1, S2 are muffled ABDOMEN: Soft. Bowel sounds are present. No masses. No tenderness. EXTREMITIES: No pedal edema. No calf tenderness. NEUROLOGICAL: Patient is awake, alert and oriented x3. Cranial nerves 2 through 12 are grossly intact. Please refer to medication reconciliation sheet for a list of medications. The impression and plan of care has been dictated by Alice Paz, Nurse Practitioner as directed. Dr. Rhett MD I have performed a history and examination and MDM of this patient, discussed the same with the dictator, and agree with the dictator's assessment and plan as written ,documented as a scribe. Based on total visit time, I have performed more than 50% of the visit. Patient Condition at Discharge: Stable Plan - Discharge Summary Discharge Rx Participant: No New Discharge Prescriptions: New cefUROXime axetiL [Ceftin] 500 mg PO BID 3 Days #6 tab Apixaban [Eliquis] 5 mg PO BID #60 tab Acetaminophen Tab [Tylenol] 650 mg PO Q6HR PRN tab PRN Reason: Mild Pain Or Fever > 100.5 Metoprolol Tartrate [Lopressor] 25 mg PO BID #60 tab Continue Atorvastatin [Lipitor] 80 mg PO DAILY metFORMIN HCL [Glucophage] 500 mg PO HS Clopidogrel [Plavix] 75 mg PO HS lisinopriL 30 mg PO DAILY Discontinued Aspirin EC [Ecotrin Low Dose] 81 mg PO DAILY Metoprolol Succinate (ER) [Toprol Xl] 25 mg PO DAILY Discharge Medication List Atorvastatin [Lipitor] 80 mg PO DAILY 11/24/22 [History] Clopidogrel [Plavix] 75 mg PO HS 11/24/22 [History] lisinopriL 30 mg PO DAILY 11/24/22 [History] metFORMIN HCL [Glucophage] 500 mg PO HS 11/24/22 [History] Acetaminophen Tab [Tylenol] 650 mg PO Q6HR PRN tab 11/25/22 [Rx] Apixaban [Eliquis] 5 mg PO BID #60 tab 11/25/22 [Rx] Metoprolol Tartrate [Lopressor] 25 mg PO BID #60 tab 11/25/22 [Rx] cefUROXime axetiL [Ceftin] 500 mg PO BID 3 Days #6 tab 11/25/22 [Rx] Follow up Appointment(s)/Referral(s): Raffi Cox DO [STAFF PHYSICIAN] - 1 Week (APPOINTMENT MADE TO SEE DR. OLIVA ON November @ 10:00AM ) Fran Vela DO [Primary Care Provider] - 1-2 days (THE OFFICE WILL CALL YOU WITH AN APPOINTMENT DATE AND TIME) Patient Instructions/Handouts: A-fib (Atrial Fibrillation) (ED) Activity/Diet/Wound Care/Special Instructions: *HOLD PLAVIX AND ELIQUIS UNTIL YOU FOLLOW UP WITH YOUR DOCTOR Activity Limited until follow-up Follow-up with cardiology outpatient Continue taking medications as prescribed Continue to hold Eliquis and Plavix and follow-up with primary care provider and cardiology this week to discuss resuming Follow-up with primary care provider on discharge Discharge Disposition: HOME SELF-CARE
== END 2022-11-25 16:26 | disposition home or self-care (01) ==
LOC: EC 08:52 → 3SCARD 12:46
PROVIDERS: ADMIT Hospitalist; ATTEND Hospitalist
DX: I48.0 Paroxysmal atrial fibrillation (principal); I11.9 Hypertensive heart disease without heart failure; I25.10 Atherosclerotic heart disease of native coronary artery without angina pectoris; E11.51 Type 2 diabetes mellitus with diabetic peripheral angiopathy without gangrene; I25.84 Coronary atherosclerosis due to calcified coronary lesion; R79.89 Other specified abnormal findings of blood chemistry; I08.3 Combined rheumatic disorders of mitral, aortic and tricuspid valves; R04.0 Epistaxis; E78.5 Hyperlipidemia, unspecified; M19.90 Unspecified osteoarthritis, unspecified site; L98.9 Disorder of the skin and subcutaneous tissue, unspecified; K44.9 Diaphragmatic hernia without obstruction or gangrene; K80.20 Calculus of gallbladder without cholecystitis without obstruction; M25.412 Effusion, left shoulder; M25.411 Effusion, right shoulder; Z79.02 Long term (current) use of antithrombotics/antiplatelets; Z79.82 Long term (current) use of aspirin; Z79.84 Long term (current) use of oral hypoglycemic drugs; Z79.899 Other long term (current) drug therapy; Z86.12 Personal history of poliomyelitis; Z95.5 Presence of coronary angioplasty implant and graft; Z96.653 Presence of artificial knee joint, bilateral; Z90.49 Acquired absence of other specified parts of digestive tract; Z90.710 Acquired absence of both cervix and uterus; Z98.51 Tubal ligation status; Z98.890 Other specified postprocedural states; Z98.62 Peripheral vascular angioplasty status; Z82.49 Family history of ischemic heart disease and other diseases of the circulatory system; Z82.61 Family history of arthritis
CPT/HCPCS: 96366 ×3; 96368; 96376; 96361; 96365; 96367; 96375; 99291; 36415; 94760; 93005; 93306; 85379; 83880; 80053; 80048; 84443; 83735; 84484; 85025 ×2; 85610 ×2; 85730 ×2; 81001; 87040; 87086; 87077; 87186; 71046; 70450; 71275; G0378 ×2; J0696 ×2; J1644 ×2; Q9967

== ENCOUNTER 2023-04-25 14:00 | Emergency (ER) | payer MEDICARE, OTHER ==
[2023-04-25 15:01] VITALS: RESP 18; TEMP 98.1
[2023-04-25 15:26] LABS: Basophils % (A) 1 %; Eosinophils # (A) 0.1 k/uL (0-0.7); Eosinophils % (A) 2 %; HCT 37.5 % (34.0-46.0); HGB 12.6 gm/dL (11.4-16.0); Lymphocytes # (A) 1.9 k/uL (1.0-4.8); Lymphocytes % (A) 30 %; MCH 31.9 pg (25.0-35.0); MCHC 33.7 g/dL (31.0-37.0); MCV 94.8 fL (80.0-100.0); Mean Platelet Volume 8.1; Monocytes # (A) 0.4 k/uL (0-1.0); Monocytes % (A) 6 %; Neutrophils % (A) 61 %; Platelet Count 225 k/uL (150-450); RBC 3.95 m/uL (3.80-5.40); RDW 14.6 % (11.5-15.5); WBC 6.5 k/uL (3.8-10.6)
--- NOTE | 2023-04-25 15:29 | XR ---
EXAMINATION TYPE: XR chest 2V DATE OF EXAM: 04/25/2023 COMPARISON: 11/24/2022 HISTORY: 77-year-old female dysrhythmia, shortness of breath TECHNIQUE: AP and lateral views FINDINGS: Heart upper limits of normal in size. Aorta and pulmonary vasculature within normal limits. No consol idation or pleural effusion. IMPRESSION: Borderline heart size. No acute process seen.
--- NOTE | 2023-04-25 15:36 | ED ---
Arrhythmia/Palpitations HPI - General Chief Complaint: Arrhythmia/Palpitations Stated Complaint: Afib,Heart Palpitations Time Seen by Provider: 04/25/23 14:34 Source: patient, EMS, RN notes reviewed Mode of arrival: EMS Limitations: no limitations - History of Present Illness Initial Comments: 77-year-old female sent emergency Department chief complaint of palpitations. Patient states she's been having palpations all morning states that she felt slightly more fatigued and dizzy. She states that her family members him over in the foot spot watch on her wrist and which it read a heart rate of 1:30. Patient states that right after they checked a few more times and her heart rate came back to normal and she states that over symptoms resolved. She states she feels asymptomatic currently. She denies any URI symptoms. Denies any complaints of chest pain. She does have a history of hyperlipidemia hypertension and diabetes. - Related Data Home Medications Medication Instructions Recorded Confirmed Atorvastatin [Lipitor] 80 mg PO HS 11/24/22 04/25/23 lisinopriL 30 mg PO DAILY 11/24/22 04/25/23 Melatonin 10 mg PO HS 04/25/23 04/25/23 Nitroglycerin 0.4 mg SUBLINGUAL Q5M PRN 04/25/23 04/25/23 metFORMIN HCL 1,000 mg PO HS 04/25/23 04/25/23 Previous Rx's Medication Instructions Recorded Acetaminophen Tab [Tylenol] 650 mg PO Q6HR PRN tab 11/25/22 Apixaban [Eliquis] 5 mg PO BID #60 tab 11/25/22 Metoprolol Tartrate [Lopressor] 25 mg PO BID #60 tab 11/25/22 Allergies Allergy/AdvReac Type Severity Reaction Status Date / Time No Known Allergies Allergy Verified 04/25/23 15:25 Review of Systems ROS Statement: Those systems with pertinent positive or pertinent negative responses have been documented in the HPI. ROS Other: All systems not noted in ROS Statement are negative. Past Medical History Past Medical History: Coronary Artery Disease (CAD), Diabetes Mellitus, Hyperlipidemia, Hypertension, Musculoskeletal Disorder, Osteoarthritis (OA), Skin Disorder, Vascular Disorder Additional Past Medical History / Comment(s): Wound Rt Heel, Polio AGE 6, RECOVERED. History of Any Multi-Drug Resistant Organisms: None Reported Past Surgical History: Appendectomy, Heart Catheterization With Stent, Hysterectomy, Joint Replacement, Tonsillectomy, Tubal Ligation Additional Past Surgical History / Comment(s): Drug eluding stent in the proximal LAD and percutaneous transluminal coronary angioplasty of the first di agonal branch of the LAD done in November 2014, bilateral knee replacements one done in 1995 and one in 2000, revision left total knee October 2015, ABD AORTAGRAM 08/2015 and PTBA RT LEG. recent knee revison surg october 29 Past Anesthesia/Blood Transfusion Reactions: No Reported Reaction Date of Last Stent Placement:: 11/2014 Past Psychological History: No Psychological Hx Reported Smoking Status: Never smoker Past Alcohol Use History: None Reported Past Drug Use History: None Reported - Past Family History Brother(s) Additional Family Medical History / Comment(s): Patient has 3 brothers with no major medical problems. Patient has 1 stepbrother and 2 stepsisters. Patient has 1 daughter that from an aneurysm and one daughter and son with no major medical problems. Mother Family Medical History: Osteoarthritis (OA) Additional Family Medical History / Comment(s): Mother is alive at age 88 with history of osteoarthritis and hip replacement Father Family Medical History: Coronary Artery Disease (CAD), Mitral Valve Prolapse (MVP) Additional Family Medical History / Comment(s): age 34 of heart attack General Exam Limitations: no limitations General appearance: alert, in no apparent distress Head exam: Present: atraumatic, normocephalic, normal inspection Eye exam: Present: normal appearance, PERRL, EOMI. Absent: scleral icterus, conjunctival injection, periorbital swelling ENT exam: Present: normal exam, normal oropharynx, mucous membranes moist Neck exam: Present: normal inspection, full ROM. Absent: tenderness, meningismus, lymphadenopathy Respiratory exam: Present: normal lung sounds bilaterally. Absent: respiratory distress, wheezes, rales, rhonchi, stridor Cardiovascular Exam: Present: regular rate, normal rhythm, normal heart sounds. Absent: systolic murmur, diastolic murmur, rubs, gallop, clicks GI/Abdominal exam: Present: soft, normal bowel sounds. Absent: distended, tenderness, guarding, rebound, rigid Course Vital Signs 04/25/23 04/25/23 14:34 14:39 Temperature 98.1 F Pulse Rate 67 Pulse Rate [ [address] ] Respiratory 18 Rate Blood Pressure 125/82 O2 Sat by Pulse 98 Oximetry EKG Findings - EKG Comments: EKG Findings:: EKG performed at 15:24 sinus rhythm rate of 64 IA 157 QRS 82 QT/QTC 410/419 - EKG Results: EKG: interpreted by DANIS Medical Decision Making - Medical Decision Making Was pt. sent in by a medical professional or institution (, PA, SPECIAL DELIVERY CLERK, urgent care, hospital, or prison...) When possible be specific @ -No Did you speak to anyone other than the patient for history (EMS, parent, family, police, friend...)? What history was obtained from this source @ -No Did you review nursing and triage notes (agree or disagree)? Why? @ -I reviewed and agree with nursing and triage notes Were old charts reviewed (outside hosp., previous admission, EMS record, old EKG, old radiological studies, urgent care reports/EKG's, prison records)? Report findings @ -No old charts were reviewed Differential Diagnosis (chest pain, altered mental status, abdominal pain women, abdominal pain men, vaginal bleeding, weakness, fever, dyspnea, syncope, headache, dizziness, GI bleed, back pain, seizure, CVA, palpatations, mental health, musculoskeletal)? @ -Differential Palpitations Ventricular arrhythmias, atrial arrhythmias, myocardial infarction, anemia, thyrotoxicosis, electrolyte imbalance, hypokalemia, pulmonary embolism, pulmonary disease, drugs, alcohol, anxiety, stress.... This is not meant to be an all-inclusive list.e EKG interpreted by me (3pts min.). @ -As above X-rays interpreted by me (1pt min.). @ -Chest x-ray shows no acute process CT interpreted by me (1pt min.). @ -None done U/S interpreted by me (1pt. min.). @ -None done What testing was considered but not performed or refused? (CT, X-rays, U/S, labs)? Why? @ -None What meds were considered but not given or refused? Why? @ -None Did you discuss the management of the patient with other professionals (professionals i.e. , PA, SPECIAL DELIVERY CLERK, lab, RT, psych nurse, social work associate, rotary planer set up operator, teacher, parking control officer, case planner)? Give summary @ -No Was smoking cessation discussed for >3mins.? @ -No Was critical care preformed (if so, how long)? @ -No Were there social determinants of health that impacted care today? How? (Homelessness, low income, unemployed, alcoholism, drug addiction, transportation, low edu. Level, literacy, decrease access to med. care, care home, rehab)? @ -No Was there de-escalation of care discussed even if they declined (Discuss DNR or withdrawal of care, Hospice)? DNR status @ -No What co-morbidities impacted this encounter? (DM, HTN, Smoking, COPD, CAD, Cancer, CVA, ARF, Chemo, Hep., AIDS, mental health diagnosis, sleep apnea, morbid obesity)? @ -Hypertension, hyperlipidemia, diabetes Was patient admitted / discharged? Hospital course, mention meds given and route, prescriptions, significant lab abnormalities, going to OR and other pertinent info. @ -Discharge patient remains asymptomatic. We discussed possibility of A. fib causing her symptoms. She is not currently in any arrhythmia or signs of distress. She states she is asymptomatic and is comfortable with discharge. Discussed returning for any return of symptoms. Undiagnosed new problem with uncertain prognosis? @ -No Drug Therapy requiring intensive monitoring for toxicity (Heparin, Nitro, Insulin, Cardizem)? @ -No Were any procedures done? @ -No Diagnosis/symptom? @ -Palpitations Acute, or Chronic, or Acute on Chronic? @ -[Acute Uncomplicated (without systemic symptoms) or Complicated (systemic symptoms)? @ -Complicated Side effects of treatment? @ -No Exacerbation, Progression, or Severe Exacerbation? @ -No Poses a threat to life or bodily function? How? (Chest pain, USA, ME, pneumonia, PE, COPD, DKA, ARF, appy, cholecystitis, CVA, Diverticulitis, Homicidal, Suicidal, threat to staff... and all critical care pts) @ -No - Lab Data Result diagrams: 04/25/23 15:10 04/25/23 15:10 Lab Results 04/25/23 04/25/23 04/25/23 Range/Units 15:10 15:10 15:10 WBC 6.5 (3.8-10.6) k/uL RBC 3.95 (3.80-5.40) m/uL Hgb 12.6 (11.4-16.0) gm/dL Hct 37.5 (34.0-46.0) % MCV 94.8 (80.0-100.0) fL MCH 31.9 (25.0-35.0) pg MCHC 33.7 (31.0-37.0) g/dL RDW 14.6 (11.5-15.5) % Plt Count 225 (150-450) k/uL MPV 8.1 Neutrophils % 61 % Lymphocytes % 30 % Monocytes % 6 % Eosinophils % 2 % Basophils % 1 % Neutrophils # 4.0 (1.3-7.7) k/uL Lymphocytes # 1.9 (1.0-4.8) k/uL Monocytes # 0.4 (0-1.0) k/uL Eosinophils # 0.1 (0-0.7) k/uL Basophils # 0.0 (0-0.2) k/uL PT 11.5 (10.0-12.5) sec INR 1.1 (<1.2) APTT 28.0 (22.0-30.0) sec Sodium 135 L (137-145) mmol/L Potassium 3.8 (3.5-5.1) mmol/L Chloride 102 (98-107) mmol/L Carbon Dioxide 22 (22-30) mmol/L Anion Gap 11 mmol/L BUN 20 H (7-17) mg/dL Creatinine 0.71 (0.52-1.04) mg/dL Est GFR (CKD-EPI)AfAm >90 (>60 ml/min/1.73 sqM) Est GFR (CKD-EPI)NonAf 84 (>60 ml/min/1.73 sqM) Glucose 152 H (74-99) mg/dL Calcium 9.3 (8.4-10.2) mg/dL Magnesium 1.6 (1.6-2.3) mg/dL Total Bilirubin 0.7 (0.2-1.3) mg/dL AST 22 (14-36) U/L ALT 17 (4-34) U/L Alkaline Phosphatase 84 (38-126) U/L Troponin I (0.000-0.034) ng/mL Total Protein 6.4 (6.3-8.2) g/dL Albumin 3.7 (3.5-5.0) g/dL 04/25/ Range/Units 15:10 WBC (3.8-10.6) k/uL RBC (3.80-5.40) m/uL Hgb (11.4-16.0) gm/dL Hct (34.0-46.0) % MCV (80.0-100.0) fL MCH (25.0-35.0) pg MCHC (31.0-37.0) g/dL RDW (11.5-15.5) % Plt Count (150-450) k/uL MPV Neutrophils % % Lymphocytes % % Monocytes % % Eosinophils % % Basophils % % Neutrophils # (1.3-7.7) k/uL Lymphocytes # (1.0-4.8) k/uL Monocytes # (0-1.0) k/uL Eosinophils # (0-0.7) k/uL Basophils # (0-0.2) k/uL PT (10.0-12.5) sec INR (<1.2) APTT (22.0-30.0) sec Sodium (137-145) mmol/L Potassium (3.5-5.1) mmol/L Chloride (98-107) mmol/L Carbon Dioxide (22-30) mmol/L Anion Gap mmol/L BUN (7-17) mg/dL Creatinine (0.52-1.04) mg/dL Est GFR (CKD-EPI)AfAm (>60 ml/min/1.73 sqM) Est GFR (CKD-EPI)NonAf (>60 ml/min/1.73 sqM) Glucose (74-99) mg/dL Calcium (8.4-10.2) mg/dL Magnesium (1.6-2.3) mg/dL Total Bilirubin (0.2-1.3) mg/dL AST (14-36) U/L ALT (4-34) U/L Alkaline Phosphatase (38-126) U/L Troponin I <0.012 (0.000-0.034) ng/mL Total Protein (6.3-8.2) g/dL Albumin (3.5-5.0) g/dL Disposition Clinical Impression: Palpitations Disposition: HOME SELF-CARE Condition: Stable Instructions (If sedation given, give patient instructions): Heart Palpitations (ED) Additional Instructions: Please return to the Emergency Department if symptoms worsen or any other concerns. Is patient prescribed a controlled substance at d/c from ED?: No Referrals: Fran Vela DO [Primary Care Provider] - 1-2 days Time of Disposition: 16:24
[2023-04-25 15:38] LABS: INR 1.1 (<1.2); Prothrombin Time 11.5 sec (10.0-12.5)
[2023-04-25 15:48] LABS: ALT 17 U/L (4-34); AST 22 U/L (14-36); African American GFR (CKD) >90 (>60 ml/min/1.73 sqM); Albumin 3.7 g/dL (3.5-5.0); Alkaline Phosphatase 84 U/L (38-126); Anion Gap 11 mmol/L; Blood Urea Nitrogen 20 mg/dL (7-17); Calcium 9.3 mg/dL (8.4-10.2); Carbon Dioxide 22 mmol/L (22-30); Chloride 102 mmol/L (98-107); Glucose 152 mg/dL (74-99); Magnesium 1.6 mg/dL (1.6-2.3); Non-African American GFR(CKD) 84 (>60 ml/min/1.73 sqM); Potassium 3.8 mmol/L (3.5-5.1); Sodium 135 mmol/L (137-145); Total Bilirubin 0.7 mg/dL (0.2-1.3); Total Protein 6.4 g/dL (6.3-8.2)
[2023-04-25 16:56] VITALS: BP 126/70; PULSE 68
== END 2023-04-25 16:37 | disposition home or self-care (01) ==
LOC: EC 14:00
DX: I25.2 Old myocardial infarction (principal); I25.10 Atherosclerotic heart disease of native coronary artery without angina pectoris; E11.9 Type 2 diabetes mellitus without complications; E78.5 Hyperlipidemia, unspecified; I10 Essential (primary) hypertension; M19.90 Unspecified osteoarthritis, unspecified site; Z79.1 Long term (current) use of non-steroidal anti-inflammatories (NSAID); Z79.84 Long term (current) use of oral hypoglycemic drugs; Z79.899 Other long term (current) drug therapy
CPT/HCPCS: 36415; 71046; 80053; 83735; 84484; 85025; 85610; 85730; 99285